=== PATIENT | male | born 1975 | race African-American/Black ===

== ENCOUNTER 2019-08-27 11:20 | Emergency (ER) | payer SELFPAY ==
[~2019-08-27] VITALS: Ht 175.3 cm; Wt 81.6 kg
[2019-08-27 11:32] VITALS: BP 132/83
[2019-08-27] MEDS ORDERED: ACETAMINOPHEN-1 EAC1 ORAL (11:39)
[2019-08-27] MEDS ORDERED: IBUPROFEN600 M1 ORAL (11:39)
[2019-08-27] MEDS ORDERED: AMOXICILLIN500 MG ORAL (11:39)
--- NOTE | 2019-08-27 11:42 | Emergency Room Report ---
History of Present Illness General Chief Complaint: Toothache Source: Patient Present Illness HPI Patient presents with complaints of left upper dental pain reports that he saw a dentist about 2 months ago he was told that he needed to have the tooth removed however it was reported that His insurance was not covered patient has not followed up any further Now the pain has worsened and presents to the ER Denies any visual changes denies any Trismus denies any difficulty swallowing pain is 10 out of 10 Allergies: Coded Allergies: No Known Allergies (Unverified , 08/27/19) COVID-19 Screening Contact w/high risk pt: No Recent Travel to affected area: No Experienced COVID-19 symptoms?: No COVID-19 Testing performed SALES MGR: No Patient History Past Medical History: see triage record Reviewed Nursing Documentation: PMH: Agreed; PSxH: Agreed Nursing Documentation-PM Past Medical History: No Stated History Review of Systems All Other Systems: negative except mentioned in HPI Physical Exam Vital Signs Date Time Temp Pulse Resp B/P (MAP) Pulse Ox O2 Delivery O2 Flow Rate FiO2 08/27/19 11:24 99.3 89 17 137/87 (104) 97 Room Air Sp02 EP Interpretation: reviewed, normal General Appearance: well appearing, no apparent distress Head: normocephalic, atraumatic Eyes: bilateral eye PERRL, bilateral eye EOMI ENT: hearing grossly normal, TMs + canals normal, uvula midline, other - Swelling to the left upper molar region some questionable decay as well noted on the inner aspect airway patent no obvious trismus Neck: full range of motion, supple, no meningismus, no bony tend Respiratory: lungs clear, normal breath sounds, no rhonchi, no respiratory distress, no retraction, no accessory muscle use Cardiovascular #1: normal peripheral pulses, regular rate, rhythm, no edema, no gallop, no JVD, no murmur Gastrointestinal: normal bowel sounds, non tender, soft, no mass, no guarding Musculoskeletal: normal inspection Neurologic: motor strength/tone normal, spin table operator III-XII nml as tested, oriented x3 , sensory intact, responsive Psychiatric: mood/affect normal Skin: no rash Lymphatic: normal inspection, no adenopathy Medical Decision Making Diagnostic Impression: Primary Impression: dental abscess ER Course Patient findings are consistent with dental abscess he is placed on oral antibiotics and requires appropriate close outpatient follow-up With dental specialty Last Vital Signs Date Time Temp Pulse Resp B/P (MAP) Pulse Ox O2 Delivery O2 Flow Rate FiO2 08/27/19 11:32 99.3 85 18 132/83 99 Room Air Status: improved Disposition: HOME, SELF-CARE Condition: Stable Scripts Acetaminophen With Codeine (T#3) (TYLENOL #3 TAB*) Y Tab 1 TAB ORAL Q8H PRN for For Pain, #10 TAB Prov: Rubina Mchugh DO 08/27/19 Ibuprofen* (MOTRIN*) 600 Mg Tablet 600 MG ORAL Q8HR PRN for FOR PAIN, #20 TAB 0 Refills Prov: Rubina Mchugh DO 08/27/19 Amoxicillin* (AMOXIL*) 500 Mg Capsule 500 MG ORAL THREE TIMES A DAY, #30 CAP Prov: Rubina Mchugh DO 08/27/19 Referrals: [facility](age 2-12) - Orthodontic Clinic - Hours: Sat,Sat,, 8:15am and 1pm (new patient screening), Tu. 1pm. Emergency clinic Saturday - Saturday 8:30am and 1pm, Tues. 1pm. *Call to check if clinic is open; No appointment necessary for the first visit ( new patient screening), Arrive 15-30 minutes early as it is first come, first serve. [facility] INFO: New Patient Screening: Sat- 8am-1pm Sat- 9am -5pm and Sat 2pm-5pm [facility] + [facility] [place] - Peds ER - Patient Instructions: Dental Abscess, [id number] Additional Instructions: Patient is provided with the discharge instructions notified to follow up with primary doctor in the next 2-3 days otherwise return to the er with any worsening symptoms. Please note that this report is being documented using [employer] technology. This can lead to erroneous entry secondary to incorrect interpretation by the dictating instrument. Rubina Mchugh DO Aug 27, 2019 11:41
[2019-08-27 12:03] VITALS: BP 130/87
== END 2019-08-27 12:05 | disposition home or self-care (01) ==
LOC: EMR 11:41
DX: K04.7 Periapical abscess without sinus (principal)
CPT/HCPCS: 99282